=== PATIENT | male | born 1940 | race Caucasian/White ===

== ENCOUNTER 2017-01-01 06:04 | Inpatient (IN) | payer OTHER ==
[2016-12-05 12:27] VITALS: BMI 37.0
--- NOTE | 2016-12-05 12:58 | PAT Medication Instructions ---
Service Date Dec 05, 2016. Current Home Medication List Cholecalciferol (Vitamin D3), 1 TAB PO QAM Diclofenac (Voltaren), 75 MG PO BID Fish Oil ([place]-3), 1 CAP PO QAM Glyburide-Metformin (Glyburide/Metformin Hcl), 2 TAB PO QAM Losartan Potassium (Cozaar), 50 MG PO QAM Misc Natural Products (Osteo Bi-Flex Advanced Do), 1 TAB PO QAM Multivitamin (Multivitamin), 1 TAB PO QAM Terazosin (Hytrin), 5 MG PO HS Medication Instructions For Your Scheduled Surgery - Hold the following medications 10 days prior to surgery: Misc Natural Products (Osteo Bi-Flex Advanced Do), 1 TAB PO QAM Fish Oil ([place]-3), 1 CAP PO QAM - Hold the following medications 48 hours prior to surgery: Glyburide-Metformin (Glyburide/Metformin Hcl), 2 TAB PO QAM - Hold the following medications the morning of surgery: Multivitamin (Multivitamin), 1 TAB PO QAM Losartan Potassium (Cozaar), 50 MG PO QAM Cholecalciferol (Vitamin D3), 1 TAB PO QAM Diclofenac (Voltaren), 75 MG PO BID - Take the following medications as scheduled the night before surgery: Terazosin (Hytrin), 5 MG PO HS If you have any questions please call us at [phone] or [phone] ( [place]) or [phone]
[2016-12-05 13:30] LABS: BASO % 0.3 %; BASO ABS # 0.02 K/uL (0-0.2); COMPLETE YES; HEMATOCRIT 44.9 % (42-52); IG% 0.2 %; LYMPH % 20.8 %; LYMPH ABS # 1.27 K/uL (1.2-3.4); MEAN CELL VOLUME 91.8 fL (80-100); MEAN CORPUSCULAR HEMOGLOBIN 31.3 pg (25-34); MEAN CORPUSCULAR HGB CONC 34.1 g/dl (32-36); MEAN PLATELET VOLUME 10.2 fL (7.4-10.4); NEUT % 68.7 %; PLATELET COUNT 141 K/uL (130-400); RED BLOOD COUNT 4.89 M/uL (4.7-6.1); WHITE BLOOD COUNT 6.11 K/uL (4.8-10.8)
[2016-12-05 13:35] LABS: URINE APPEARANCE CLEAR (CLEAR); URINE BILIRUBIN NEG (NEG); URINE COLOR DK YELLOW; URINE NITRITE NEG (NEG); URINE SPECIFIC GRAVITY 1.034 (1.000-1.030); UROBILINOGEN NEG (NEG); ZZUR CULT IF INDIC CLEAN CATCH NO
[2016-12-05 13:40] LABS: PARTIAL THROMBOPLASTIN RATIO 1.1; PROTHROMBIN TIME (PATIENT) 11.1 SECONDS (9.0-12.0)
--- NOTE | 2016-12-05 13:44 | DIAGNOSTIC IMAGING REPORT ---
TWO VIEW CHEST CLINICAL HISTORY: Preoperative examination. FINDINGS: PA and lateral chest radiographs are obtained. No prior studies are available for comparison at the time of dictation. The examination is degraded by large body habitus. The heart is top normal for projection. The mediastinal contour is within normal limits. The lungs and pleural spaces are clear. There is no pneumothorax. The skeletal structures are osteopenic. Degenerative change and mild scoliosis are noted in the thoracic spine. IMPRESSION: No active disease in the chest. Electronically signed by: Lawrence Paris M.D. 12/05/2016 1:43 PM Dictated Date/Time: 12/05/2016 1:42 PM
[2016-12-05 13:49] LABS: MANUAL MICROSCOPIC REQUIRED? NO; REVIEW REQ? NO
--- NOTE | 2016-12-28 09:05 | HISTORY & PHYSICAL EXAMINATION ---
DATE OF ADMISSION: 01/01/2017 CHIEF COMPLAINT: Left knee pain. HISTORY OF PRESENT ILLNESS: Mr. Cunningham is a 76-year-old male with a 4-5 year history of pain in his left knee. The patient rates his pain a 9/10. He has pain with his daily activities. He has limited standing and walking tolerance. Pain is worse with weightbearing. The patient has been taking pain medication with minimal relief. He has failed conservative treatment. He is scheduled for left knee replacement. PAST MEDICAL HISTORY: Diabetes with an A1c of 5.6, hypertension. He denies heart disease or DVT. PAST SURGICAL HISTORY: Lumbar decompression and cataract extraction. SOCIAL HISTORY: The patient denies alcohol or tobacco use. He lives in a single story home. He is and is semi-retired as a CPA. FAMILY HISTORY: Negative for DVT. MEDICATIONS: Losartan 50 mg, glyburide 1.25/metformin 250 mg, 1 capsule 4 times daily, terazosin 5 mg daily, multivitamin, fish oil, Osteo Bi-Flex, vitamin D3. ALLERGIES: None. REVIEW OF SYSTEMS: See HPI. Ten other systems reviewed, all negative. PHYSICAL EXAMINATION: VITAL SIGNS: Height 5 foot 10. Weight 253 pounds. BMI is 36. GENERAL: This is going to be a well-developed, well-nourished male who is alert and oriented x3. Mood and affect are appropriate. HEAD, EYES, EARS, NOSE, AND THROAT: Normocephalic, atraumatic. Mucous membranes are moist and intact. NECK: Supple without lymphadenopathy. HEART: Regular rate and rhythm without murmurs, rubs or gallops. LUNGS: Clear to auscultation without wheezes or rhonchi. ABDOMEN: Soft and nontender. Bowel sounds are equal and active. EXTREMITIES: No ecchymosis, redness or warmth. Thigh and calf are soft and nontender. He has varus deformity. Range of motion is from 7 to 100 degrees. He has trace medial laxity. He is neurovascularly intact with +5/5 strength. X-RAY EXAMINATION: AP and lateral views show severe joint space narrowing with deformity with joint subluxation and osteophyte formation. IMPRESSION: Degenerative joint disease left knee. PLAN: The patient will be admitted for a left total knee arthroplasty. We will plan on aspirin for DVT prophylaxis. The patient has [facility] set up for home physical therapy. [facility]
[2017-01-01] VITALS (9 sets, daily range): BP systolic 133–153; BP diastolic 70–87; PULSE 61–87; TEMP 36.5–37; O2SAT 94–98; Ht 177.8 cm; Wt 116.2 kg
[~2017-01-01] VITALS: Ht 177.8 cm; Wt 116.2 kg
[~2017-01-01 06:04] MED LIST: ACETAMINOPHEN 500 MG TAB PO SCH; CEFAZOLIN 3000 MG/65 ML D5W 65 ML IV SCH; CHOL1000 PO; CeleBREX 200 MG CAP PO SCH; DICL-201 PO; FAMOTIDINE 20 MG TAB PO SCH; GABAPENTIN 300 MG CAP PO SCH; LACTATED RINGER'S 1000ML 1,000 ML IV SCH; LACTATED RINGER'S 1000ML IV SCH; LOSA50TA6 PO; METOCLOPRAMIDE HCL 10 MG TAB PO SCH; MISCTAB78 PO; MULT-506 PO; OMEG10007 PO; OXYCODONE HCL 10 MG TABCR (OXYCONTIN) PO SCH; POLYMYXIN B SULFATE 100,000 UNITS in NSS 100ML IR SCH; ROPIVACAINE 5MG/ML 30 ML 150 MG, BUPIVACAINE/EPINEPHR 0.5% MPF 30 ML, KETOROLAC TROMETH... INFIL SCH; TERA5CAP PO; VANCOMYCIN INJ 400 MG in NSS 100ML IR SCH; [UNRECOGNIZED DRUG - CODE] PO
[2017-01-01] MEDS ORDERED: BUPIVACAINE 0.25% 30 ML VIAL ONE (06:27)
[2017-01-01] MEDS ORDERED: BUPIVACAINE 0.5 % 5 MG/1 ML PF 10ML VIAL ONE (06:27)
[2017-01-01] MEDS ORDERED: PROPOFOL IV EMULSION 10 MG/ML 20 ML VIAL IV ONE (06:35)
[2017-01-01] MEDS ORDERED: FENTANYL CITRATE INJ 50 MCG/1 ML 2 ML VIAL ONE (06:35)
[2017-01-01] MEDS ORDERED: MIDAZOLAM HCL 1 MG/ML 2ML VIAL ONE ×2 (06:35→09:00)
[2017-01-01] MEDS ORDERED: LIDOCAINE HCL 2% 2 ML VIAL (20MG/ML) ONE (06:35)
--- NOTE | 2017-01-01 06:47 | History & Physical Bridge Note ---
H&P Re-Evaluation Bridge Note: I have examined the patient, reviewed the History & Physical and in the interval since the performance of the History & Physical I have noted the following changes of clinical significance: No changes noted
[2017-01-01] MEDS ORDERED: BUPIVACAINE/EPINEPHRINE 0.25% 1:200,000 30 ML VIAL ONE (07:39)
[2017-01-01] MEDS ORDERED: ORTHO JOINT ANESTHETIC ONE (07:39)
[2017-01-01] MEDS ORDERED: POVIDONE-IODINE OP SOLN 30 ML BTL ONE (07:40)
[2017-01-01] MEDS ORDERED: BACITRACIN 50000 UNIT VIAL ONE (07:40)
[2017-01-01] MEDS: TRANEXAMIC ACID INJ 1,000 MG in SODIUM CHLORIDE 0.9% 100ML 100 ML IV SCH ×2 (07:58→11:20)
[2017-01-01] MEDS ORDERED: LACTATED RINGER'S 1000ML 1,000 ML IV PRN (08:27)
[2017-01-01] MEDS ORDERED: ONDANSETRON INJ 2 MG/ML 2 ML VIAL IV PRN ×2 (08:30→10:00)
[2017-01-01] MEDS ORDERED: FENTANYL CITRATE INJ 50 MCG/1 ML 2 ML VIAL IV PRN (08:30)
[2017-01-01] MEDS ORDERED: EpHEDrine SULFATE 50MG/5ML SYR ONE (08:56)
--- NOTE | 2017-01-01 09:47 | [facility] Post Operative Brief Note ---
Immediate Operative Summary Operative Date Jan 01, 2017. Pre-Operative Diagnosis Left knee degenerative joint disease Post-Operative Diagnosis Left knee degenerative joint disease Procedure(s) Performed left total knee arthroplasty Surgeon Dr. Jersey Gan Process Control Engineer Surgeon(s) Nura Harding PA-C Estimated Blood Loss 75 Findings sevre dz acl def Specimens A: left knee bone and tissue Complication(s) None Disposition Recovery Room / PACU
[2017-01-01] MEDS ORDERED: TRAMADOL HCL 50 MG TAB PO PRN (10:00)
[2017-01-01] MEDS ORDERED: BISACODYL 10 MG SUPP PR PRN (10:00)
[2017-01-01] MEDS ORDERED: OXYCODONE HCL IR 5 MG TAB (IMMEDIATE RELEASE) PO PRN (10:00)
[2017-01-01] MEDS ORDERED: MoRPHine SULFATE 2 MG/ML CARP IV PRN (10:00)
[2017-01-01] MEDS ORDERED: ALUMINUM/MAGNESIUM/SIMETH (MAALOX MAX) 30 ML UDC PO PRN (10:00)
[2017-01-01] MEDS ORDERED: SOD PHOSPHATE/SOD BIPHOSPHATE ENEMA 132 ML BTL PR PRN (10:00)
[2017-01-01] MEDS ORDERED: ZOLPIDEM TARTRATE 5 MG TAB PO PRN (10:00)
[2017-01-01] MEDS ORDERED: MAGNESIUM HYDROXIDE SUSP 30 ML UDC PO PRN (10:00)
[2017-01-01] MEDS ORDERED: METOCLOPRAMIDE HCL INJ 5 MG/ML 2 ML VIAL IV PRN (10:00)
[2017-01-01] MEDS ORDERED: DiphenhydrAMINE HCL 50 MG/ML VIAL IV PRN (10:00)
[2017-01-01] MEDS ORDERED: KETOROLAC TROMETHAMINE 15 MG/ML VIAL IV. PRN (10:00)
--- NOTE | 2017-01-01 11:40 | Anesthesiology Progress Note ---
Anesthesia Post Op Note Date & Time Jan 01, 2017 at 11:38 Vital Signs Pain Intensity: 0 Vital Signs Past 12 Hours Date Time Temp Pulse Resp B/P Pulse Ox O2 Delivery O2 Flow Rate FiO2 01/01/17 11:30 36.8 61 14 114/61 96 Nasal Cannula 2 01/01/17 11:20 63 15 103/63 97 Nasal Cannula 2 01/01/17 11:10 66 17 111/58 95 Nasal Cannula 2 01/01/17 11:00 62 14 103/55 96 Nasal Cannula 2 01/01/17 10:50 58 13 105/57 95 Nasal Cannula 2 01/01/17 10:40 63 13 101/56 96 Nasal Cannula 2 01/01/17 10:30 61 14 100/52 97 Nasal Cannula 2 01/01/17 10:21 36.2 67 16 85/45 94 Nasal Cannula 2 01/01/17 08:00 36.5 80 18 134/74 99 Mask 10 01/01/17 06:10 36.5 87 18 143/79 97 Room Air 01/01/17 06:10 36.5 83 16 143/79 97 Room Air 01/01/17 06:10 36.5 87 18 143/79 97 Room Air Notes Mental Status: alert / awake / arousable, participated in evaluation Pt Amnestic to Procedure: No (recall as expected) Nausea / Vomiting: adequately controlled Pain: adequately controlled Airway Patency, RR, SpO2: stable & adequate BP & HR: stable & adequate Hydration State: stable & adequate Neuraxial Anesthesia: was administered, sensory block is resolving Anesthetic Complications: no major complications apparent Pt doing well.
[2017-01-01] MEDS ORDERED: PHARMACY GLYCEMIC MGMT CONSULT PRN (11:45)
[2017-01-01] MEDS ORDERED: GLUCOSE 10 TABS/TUBE PO PRN (11:45)
[2017-01-01] MEDS ORDERED: GLUCAGON FOR INJ 1 MG VIAL SQ PRN (11:45)
[2017-01-01] MEDS ORDERED: GLUCOSE 40% GEL 15 GM TUBE PO PRN (11:45)
[2017-01-01] MEDS ORDERED: DEXTROSE 50% 50 ML SYR IV PRN (11:45)
--- NOTE | 2017-01-01 11:48 | DIAGNOSTIC IMAGING REPORT ---
LEFT KNEE 2 VIEWS History: Left total knee arthroplasty. Degenerative arthritis. Postop. FINDINGS: The patient is status post a left total knee arthroplasty. The hardware is intact. No fracture or dislocation. Surgical drains are in place. IMPRESSION: Left total knee arthroplasty. No evidence for hardware complication. Electronically signed by: Phillip Ross M.D. 01/01/2017 11:46 AM Dictated Date/Time: 01/01/2017 11:45 AM
[2017-01-01] MEDS: SODIUM CHLORIDE 0.9% 1000ML 1,000 ML IV SCH ×2 (12:15→19:56)
[2017-01-01] MEDS ORDERED: LANTUS PER UNIT CHARGE SQ PRN (12:30)
[2017-01-01] MEDS: INSULIN ASPART 100 UNITS/ML 3 ML PEN SC SCH ×3 (12:30→21:17)
--- NOTE | 2017-01-01 12:58 | Medical Consult ---
Consultation Date of Consultation: Jan 01, 2017. Attending Physician: Jose Gan M.D. Reason for Consultation: Medical management History of Present Illness 76 yo male with advanced arthritis, presented today for elective left TKA. Procedure went well, no complications, minimal blood loss at 75cc. Now resting in his room, starting to regain sensation in left leg and can wiggle his toes. Denies chest pain, dyspnea, nausea post operatively. No pain in the left knee. Vitals stable. Medical history significant for DM type II that is very well controlled with a HbA1c of 5.6 and HTN that is also well controlled. He confirms that he does not have any history of SC or stroke or VTE or cancer. Past Medical/Surgical History HTN Hyperlipidemia DM type II Lumbar surgery Cataract surgery Family History reviewed, no history of VTE or SC in family + for DM type II Social History Smoking Status: Never Smoker Alcohol Use: none Marital Status: Housing Status: lives with family Occupation Status: retired (CPA) Allergies Coded Allergies: No Known Allergies (Unverified , 01/01/17) Home Medications Vitamin D 1000 units daily Losartan 50mg daily Hytrin 5mg daily Glyburide/Metformin 2 tablets qAM Fish oil Multivitamin Voltaren 75mg BID Current Inpatient Medications Current Inpatient Medications Medications (Trade) Dose Ordered Sig/Gene Route Start Time Stop Time Status Last Admin Dose Admin Cefazolin Sodium (Ancef 3000 Mg/ 65 ml D5W) 65 ml @ 100 mls/hr PREOP IV 01/01/17 06:00 01/01/17 18:00 Acetaminophen (Tylenol Tab) 1,000 mg PREOP PO 01/01/17 06:00 01/01/17 18:00 01/01/17 06:48 1,000 MG Celecoxib (CeleBREX CAP) 200 mg PREOP PO 01/01/17 06:00 01/01/17 18:00 01/01/17 06:48 200 MG Famotidine (Pepcid Tab) 20 mg PREOP PO 01/01/17 06:00 01/01/17 18:00 01/01/17 06:48 20 MG Gabapentin (Neurontin Cap) 900 mg PREOP PO 01/01/17 06:00 01/01/17 18:00 01/01/17 06:47 900 MG Metoclopramide HCl (Reglan Tab) 10 mg PREOP PO 01/01/17 06:00 01/01/17 18:00 01/01/17 06:47 10 MG Oxycodone HCl 10 mg 10 mg PREOP PO 01/01/17 06:00 01/01/17 18:00 01/01/17 06:49 10 MG Tranexamic Acid 1000 mg/Sodium Chloride 110 ml @ 660 mls/hr TODAY@06,0630 IV 01/01/17 06:00 01/01/17 18:00 01/01/17 07:58 660 MLS/HR Polymyxin B Sulfate 715991 units/Sodium Chloride 102 ml @ 0 mls/hr 0600 IR 01/01/17 06:00 01/01/17 18:00 01/01/17 09:20 102 MLS/HR Vancomycin HCl/ Sodium Chloride (Vancomycin Inj/ Nss 100ml) 108 ml @ 0 mls/hr 0600 IR 01/01/17 06:00 01/01/17 18:00 01/01/17 09:20 108 MLS/HR Fentanyl Citrate (Fentanyl Inj) 25 mcg Q5M PRN IV 01/01/17 08:30 01/01/17 13:30 Ondansetron HCl 4 mg 4 mg ONE PRN IV 01/01/17 08:30 01/01/17 13:30 Lactated Ringer's 1,000 ml @ 150 mls/hr Q6H40M PRN IV 01/01/17 08:27 01/01/17 13:30 Sodium Chloride 1,000 ml @ 100 mls/hr Q10H IV 01/01/17 09:47 01/02/17 09:46 01/01/17 12:15 100 MLS/HR Cefazolin Sodium/ Dextrose (Ancef Iv/D5 50ml) 60 ml @ 100 mls/hr Q8H IV 01/01/17 16:00 01/02/17 00:35 Celecoxib (CeleBREX CAP) 200 mg QD@08 PO 01/04/17 08:00 02/03/17 07:59 Oxycodone HCl (Roxicodone Immediate Rel Tab) 1 TABLET FOR PAIN RATING... Q4H PRN PO 01/01/17 10:00 01/15/17 09:59 Oxycodone HCl (Oxycontin Tab) 10 mg Q12 PO 01/01/17 21:00 01/15/17 20:59 Morphine Sulfate (MoRPHine SULFATE INJ) 2 mg Q2HWA PRN IV 01/01/17 10:00 01/15/17 09:59 Acetaminophen (Tylenol Tab) 1,000 mg Q8H PO 01/01/17 14:00 01/31/17 09:59 Magnesium Hydroxide (Milk Of Magnesia Susp) 30 ml Q6H PRN PO 01/01/17 10:00 01/31/17 09:59 Bisacodyl (Dulcolax Supp) 10 mg DAILY PRN GA 01/01/17 10:00 01/31/17 09:59 Sodium Biphosphate/ Sodium Phosphate (Fleet Enema) 132 ml DAILY PRN GA 01/01/17 10:00 01/31/17 09:59 Senna (Senokot Tab) 17.2 mg HS PO 01/01/17 21:00 01/31/17 20:59 Diphenhydramine HCl (Benadryl Cap) 25 mg Q8H PRN PO 01/01/17 10:00 01/31/17 09:59 Diphenhydramine HCl (Benadryl Inj) 25 mg Q8H PRN IV 01/01/17 10:00 01/31/17 09:59 Al Hydrox/Mg Hydrox/Simethicone (Maalox Max Susp) 15 ml Q4H PRN PO 01/01/17 10:00 01/31/17 09:59 Zolpidem Tartrate (Ambien Tab) 5 mg HSZ PRN PO 01/01/17 10:00 01/31/17 09:59 Multivitamins (Multivitamin Tab) 1 tab QAM PO 01/02/17 09:00 02/01/17 08:59 Ondansetron HCl (Zofran Inj) 4 mg Q6H PRN IV 01/01/17 10:00 01/31/17 09:59 Metoclopramide HCl (Reglan Inj) 10 mg Q6H PRN IV 01/01/17 10:00 01/31/17 09:59 Pantoprazole Sodium (Protonix Tab) 40 mg QAM PO 01/02/17 09:00 02/01/17 08:59 Tramadol HCl 1 tablet for pain rating... Q4H PRN PO 01/01/17 10:00 01/31/17 09:59 Tranexamic Acid/ Sodium Chloride (Cyklokapron Inj/ Nss 100ml) 110 ml @ 660 mls/hr Q6H IV 01/01/17 16:00 01/01/17 16:09 Ketorolac Tromethamine (Toradol Inj) 15 mg Q6H PRN IV. 01/01/17 10:00 01/03/17 09:59 Aspirin (Ecotrin Tab) 81 mg BID PO 01/01/17 21:00 01/31/17 20:59 Cholecalciferol (Vitamin D Tab) 1,000 inter.unit QAM PO 01/02/17 09:00 02/01/17 08:59 Losartan Potassium (coZAAR TAB) 50 mg QAM PO 01/02/17 09:00 02/01/17 08:59 Terazosin HCl (Hytrin Cap) 5 mg HS PO 01/01/17 21:00 01/31/17 20:59 Miscellaneous Information (Consult Glycemic Management Pharmacy) 1 ea UD PRN N/A 01/01/17 11:45 01/31/17 11:44 Glucose (Glucose 40% Gel) 15-30 GRAMS 15 GRAMS... UD PRN PO 01/01/17 11:45 01/31/17 11:44 Glucose (Glucose Chew Tab) 4-8 Tablets 4 Tabl... UD PRN PO 01/01/17 11:45 01/31/17 11:44 Dextrose (Dextrose 50% 50ML Syringe) 25-50ML OF 50% DW IV FOR... UD PRN IV 01/01/17 11:45 01/31/17 11:44 Glucagon (Glucagon Inj) 1 mg UD PRN SQ 01/01/17 11:45 01/31/17 11:44 Insulin Aspart (novoLOG ASPART) SLIDING SCALE ACHS SC 01/01/17 12:30 01/31/17 12:29 Miscellaneous Information (Pending Order) 1 ea HS N/A 01/01/17 21:00 01/01/17 21:01 Insulin Glargine (Lantus Per Unit) 10 units HS PRN SQ 01/01/17 12:30 01/01/17 23:59 Review of Systems Constitutional: No chills, No fatigue, No fever, No problem reported, No sweats , No weakness, No weight loss Eyes: No diplopia, No discharge, No eye pain, No problem reported, No redness, No worsening of vision ENT: No dental problems, No hearing loss, No nasal symptoms, No problem reported, No sore throat, No tinnitus, No trouble swallowing, No unusual epistaxis Respiratory: No cough, No dyspnea at rest, No dyspnea on exertion, No hemoptysis, No problem reported, No shortness of breath, No sputum, No wheezing Cardiovascular: No PND, No chest pain, No claudication, No edema, No orthopnea , No palpitations, No problem reported Abdomen: No GI bleeding, No constipation, No diarrhea, No nausea, No pain, No problem reported, No vomiting Musculoskeletal: + joint pain (left knee prior to surgery, currently numb from nerve block), No calf pain, No muscle pain, No problem reported, No swelling Genitourinary - Male: No dysuria, No hematuria, No urinary frequency, No urinary urgency Neurologic: No balance problems, No memory loss, No numbness/tingling, No paralysis, No problem reported, No vertigo, No weakness Psychiatric: No anhedonism, No anxiety, No depression symptoms, No insomnia, No problem reported, No substance abuse Endocrine: No excessive thirst, No excessive urination, No fatigue, No problem reported Hematologic / Lymphatic: No abnormal bleeding/bruising, No clotting problems, No night sweats, No problem reported, No swollen lymph nodes Integumentary: No bleeding, No color change, No itch, No new/changing skin lesions, No problem reported, No rash Physical Exam Date Time Temp Pulse Resp B/P Pulse Ox O2 Delivery O2 Flow Rate FiO2 01/01/17 12:45 97 Nasal Cannula 2.0 01/01/17 12:39 Nasal Cannula 2.0 01/01/17 12:37 36.6 63 12 135/74 97 Nasal Cannula 2.0 01/01/17 12:36 Nasal Cannula 2.0 01/01/17 12:32 36.5 61 15 133/74 98 Nasal Cannula 2.0 01/01/17 11:45 58 14 116/62 97 Nasal Cannula 2 01/01/17 11:30 36.8 61 14 114/61 96 Nasal Cannula 2 01/01/17 11:20 63 15 103/63 97 Nasal Cannula 2 01/01/17 11:10 66 17 111/58 95 Nasal Cannula 2 01/01/17 11:00 62 14 103/55 96 Nasal Cannula 2 01/01/17 10:50 58 13 105/57 95 Nasal Cannula 2 01/01/17 10:40 63 13 101/56 96 Nasal Cannula 2 01/01/17 10:30 61 14 100/52 97 Nasal Cannula 2 01/01/17 10:21 36.2 67 16 85/45 94 Nasal Cannula 2 01/01/17 08:00 36.5 80 18 134/74 99 Mask 10 01/01/17 06:10 36.5 87 18 143/79 97 Room Air 01/01/17 06:10 36.5 83 16 143/79 97 Room Air 01/01/17 06:10 36.5 87 18 143/79 97 Room Air General Appearance: WD/WN, no apparent distress Head: normocephalic, atraumatic Eyes: normal inspection, PERRL, EOMI, sclerae normal ENT: normal ENT inspection, hearing grossly normal, pharynx normal Neck: supple, no adenopathy, no JVD, trachea midline Respiratory/Chest: chest non-tender, lungs clear, normal breath sounds, no respiratory distress, no accessory muscle use Cardiovascular: regular rate, rhythm, no edema, no gallop, no JVD, no murmur, normal peripheral pulses Abdomen/GI: normal bowel sounds, non tender, soft, no organomegaly Back: normal inspection, no CVA tenderness, no muscle spasm, normal range of motion Extremities/Musculoskelatal: normal capillary refill, no pedal edema, non- tender, pelvis stable, + pertinent finding (left knee immobilized) Neurologic/Psych: bike designer II-XII nml as tested, alert, normal mood/affect, normal reflexes, oriented x 3, + sensory deficit (left leg from nerve block) Skin: normal color, warm/dry, no rash Lymphatic: no adenopathy Laboratory Results Last 24 Hours Test 01/01/17 06:21 01/01/17 10:40 01/01/17 12:07 Bedside Glucose 151 mg/dl 137 mg/dl 149 mg/dl Assessment & Plan 76 yo male s/p left TKA, h/o DM and HTN - left TKA, POD #0 pain control, DVT prophylaxis, activity level and d/c planning per orthopedics - HTN: continue Losartan and Hytrin with hold parameters check BMP in the AM - DM type II: hold oral agents while hospitalized, Novolog SS resume Glyburide/Metformin on discharge - DVT prophylaxis: Aspirin Additional Copies To Ho Self M.D.
[2017-01-01] MEDS: ACETAMINOPHEN 500 MG TAB PO SCH ×2 (13:53→22:23)
--- NOTE | 2017-01-01 14:02 | Pharmacy Progress Note ---
Glycemic Control Intl Consult Date of Service Jan 01, 2017. Scope Glycemic Pharmacist consulted by Dr Gan on 01/01/2017 for glycemic control and to write orders per [facility] inpatient glycemic control protocol Objective Weight (Kilograms): 116.20 Accuchecks BSG (last 24hrs): Test 01/01/17 06:21 01/01/17 10:40 01/01/17 12:07 Bedside Glucose 151 mg/dl (70-99) 137 mg/dl (70-99) 149 mg/dl (70-99) Recent Pertinent Medications Outpatient Anti-diabetic Regimen: * Glyburide-Metformin 1.25 mg/250 mg 2 tablets qAM (last dose 12/31/2016) Risk Factors for Insulin Resistance: * Recent Surgery: L TKA on 01/01/2017 (POD 0) * Diet: type 2 diabetic diet Assessment & Plan ASSESSMENT: * ADA & AACE recommend a goal blood sugar range 140-180 mg/dl for the majority of critically ill & non-critically ill patients. However, more stringent targets may be selected in individual cases. A tighter blood sugar range is utilized for this patient based upon his age, co-morbidities, and HbA1C control as an outpatient. 01/01/2017 * Mr Cunningham is a type 2 diabetic patient admitted for a L TKA on 01/01/2017. He did not receive IV steroids intra-operatively. He has unknown control of his diabetes (H&P indicates well-controlled with A1C < 6.0%) with oral medications alone. * His fasting blood sugar pre-operatively was 151 mg/dL and after surgery was 149 mg/dL. This indicates the patient is most likely insulin sensitive so a looser carbohydrate ratio and correction factor will be utilized. A weight- based stress of 2 calculation recommends Lantus 20 units BID and then a correction factor of 20 mg/dL and carbohydrate ratio of 1:7. * A one time dose of Lantus was added at bedtime for severe hyperglycemia as it is unknown how the patient will respond to surgery. Excellent glycemic control is important post-operatively. * The patient's oral medications have been placed on hold. Once the patient's kidney function has been assessed and oral intake established will restart the patient's oral outpatient medications. Hopefully will restart 1-2 days prior to discharge. PLAN FOR INPATIENT GLYCEMIC CONTROL: * Holding outpatient oral diabetes medications * Lantus 10 units x 1 at bedtime if blood sugar greater than or equal to 200 mg/ dL * Correctional Insulin with NOVOLOG per scale ACHS * Goal Range: Low 110 mg/dL - High 140 mg/dL * Correction Factor: 30 mg/dL/unit * Nutritional / Prandial insulin per carb ratio of 1 unit per 10 grams CHO consumed * Please note that the plan above was derived based on current level of insulin resistance and hospital stress. These recommendations are appropriate for inpatient admission only. Plan of care upon discharge will need to be reassessed to avoid potential outpatient hypo/hyperglycemia. Thank you.
--- NOTE | 2017-01-01 15:27 | OPERATIVE REPORT ---
DATE OF OPERATION: 01/01/2017 PREOPERATIVE DIAGNOSIS: Degenerative arthritis, left knee. POSTOPERATIVE DIAGNOSIS: Same. PROCEDURE: Left total knee patient matched implant. SURGEON: Dr. Gan. GAS AND OIL CHECKER: ADOLPH Beltran. ANESTHESIA: Spinal. BLOOD LOSS: 75 mL REPLACEMENT FLUIDS: 1800 mL of crystalloid. DRAINS: Hemovac x2. CULTURES: None. COMPLICATIONS: None. COMPONENTS USED: [employer] [place] Knee System: Femur size 8, tibia size 7 x 10, patella size 38. NOTE: ADOLPH Beltran was present and assisted throughout due to the complicated nature of this case. He helped with preparation and set up, he first assisted throughout and personally closed the capsule, subcutaneous and skin layers and applied the postoperative dressing. DESCRIPTION: Following satisfactory spinal, the patient was supine. A tourniquet was placed but not inflated. The lower extremity was prepared with ChloraPrep and draped sterilely. Following a surgical time-out, a midline incision was made with a median parapatellar arthrotomy. The knee showed severe grade 4 changes throughout with absence of the anterior cruciate. The patient matched femoral block was applied. Femoral distal rotation and resection were set and completed. The 4-in-1 block was used to complete preparation of the femur. The patient matched tibial block was applied. Tibial resection was completed. The patella was freehand cut. Soft tissue balancing was completed and a trial reduction showed good tensioning and stability on the collateral ligaments, stable range of motion, and the patella tracked well. The trial components were removed, the capsule was prepared with the orthopedic cocktail and after irrigation, the components were cemented with Simplex G cement. A Betadine soak was performed. When the cement had hardened, the Betadine was irrigated. Two drains were placed. The arthrotomy was closed with a running suture of 0 V-Loc and reinforced with #1 Vicryl. The subcutaneous tissues were closed with 2-0 Vicryl and the skin with a running subcuticular stitch of 3-0 V-Loc. Dermabond and a dry dressing were applied. The patient was returned to his bed in stable condition. I attest to the content of the Intraoperative Record and any orders documented therein. Any exceptio ns are noted below.
[2017-01-01] MEDS ORDERED: TRANEXAMIC ACID INJ 1,000 MG in SODIUM CHLORIDE 0.9% 100ML 100 ML IV SCH (16:00)
[2017-01-01] MEDS: CEFAZOLIN IV 2,000 MG in DEXTROSE 5% 50ML 50 ML IV SCH ×2 (16:25→23:46)
[2017-01-01] MEDS ORDERED: SENNA 8.6 MG TAB PO SCH (21:00)
[2017-01-01] MEDS: OXYCODONE HCL 10 MG TABCR (OXYCONTIN) PO SCH (21:10)
[2017-01-01] MEDS: ASPIRIN 81 MG ECTAB PO SCH (21:11)
[2017-01-02 03:15] VITALS: BP 149/78; PULSE 72; TEMP 36.7; O2SAT 96
[2017-01-02] MEDS: ACETAMINOPHEN 500 MG TAB PO SCH (05:35)
[2017-01-02] MEDS: SODIUM CHLORIDE 0.9% 1000ML 1,000 ML IV SCH (05:37)
[2017-01-02 06:03] LABS: HEMATOCRIT 37.5 % (42-52); MEAN CORPUSCULAR HEMOGLOBIN 30.6 pg (25-34); MEAN CORPUSCULAR HGB CONC 33.6 g/dl (32-36); MEAN PLATELET VOLUME 10.1 fL (7.4-10.4); PLATELET COUNT 123 K/uL (130-400); RED BLOOD COUNT 4.12 M/uL (4.7-6.1); WHITE BLOOD COUNT 11.88 K/uL (4.8-10.8)
[2017-01-02 06:28] LABS: BUN/CREATININE RATIO 21.2 (10-20); CALCIUM 7.9 mg/dl (8.5-10.1); CREATININE 0.84 mg/dl (0.60-1.40); POTASSIUM 3.8 mmol/L (3.5-5.1)
[2017-01-02 06:47] VITALS: BP 154/79; PULSE 76; TEMP 37; O2SAT 94
--- NOTE | 2017-01-02 06:51 | Discharge Instructions ---
Discharge Instructions Date of Service Jan 02, 2017. Admission Reason for Admission: Left Knee Degenerative Arthritis Discharge Discharge Diagnosis / Problem: Left Knee Djd Discharge Goals Goal(s): Decrease discomfort, Improve function Activity Recommendations Activity Limitations: per Instructions/Follow-up section Weightbearing Status: Left weightbearing (as tolerated) . Instructions / Follow-Up Instructions / Follow-Up ACTIVITY RECOMMENDATIONS: SELF CARE INSTRUCTIONS AFTER TOTAL KNEE REPLACEMENT A. You may need to continue a physical therapy program after discharge from the hospital. There are several options available to you. Your doctor will assist you in selecting the best one for you. 1. An out-patient facility 2 to 3 times a week for therapy or home therapy. 2. Continue working on all exercises taught to you in the hospital. Your goals should be to increase bending of your knee to 90 degrees and beyond and to fully straighten your knee. B. You may progress at your own pace from walking with a walker or crutches to a cane; then to no assistive devices. C. Make walking a part of your daily routine. Be up as much as comfortable with rest periods throughout the day. Rest with leg elevation is very important. Use the ice wrap frequently for the first 3-4 weeks. D. There are no restrictions on activities. You may ride in a car, shop, participate in bolt labeler and all social activities. E. Wear the long elastic stockings (GABRIEL hose) 20 hours a day for 2 weeks after surgery. They can be removed several times a day for laundering and for a bath. F. You may shower, no tub baths until cleared by your doctor. SPECIAL CARE INSTRUCTIONS: VERY IMPORTANT TO READ AND REVIEW A. There are a few signs you need to watch for after you are home. Call [facility] if you notice any of the followin. Increased severe knee pain. Some pain is expected especially when you exercise. 2. Increased swelling in your leg or knee; pain or swelling of the calf muscle in either lower leg. 3. Any fluid drainage from the incision. 4. Shortness of breath or chest pain. B. Please call [facility] at if you have any concerns or questions about your operation or recovery. The doctor or his nurse will return your call promptly. C. You must take antibiotics before dental work, bladder, bowel or other surgery. Your doctor will provide you with a permanent care to carry describing this precaution. IMPORTANT: * REMEMBER TO TAKE ASPIRIN, 81 MG, TWICE DAILY FOR 4 WEEKS UNLESS OTHERWISE DIRECTED. THIS IS YOUR BLOOD THINNER. * HIGH RISK PATIENTS MAY BE PRESCRIBED A STRONGER BLOOD THINNER. THIS WILL BE PROVIDED AT DISCHARGE. * CALL IF INCREASED PAIN, REDNESS, DRAINAGE OR FEVER GREATER THAT 101. * WEAR GABRIEL HOSE 20 HOURS PER DAY FOR 2 WEEKS. * DERMABOND Prineo- This is a mesh tape dressing that is covered with glue. It should remain in place until the incision is properly healed, usually 10-14 days. This dressing is designed to naturally slough off. You may trim the excess mesh tape as it peels off. Incision may be briefly wet in a shower. Dry immediately by blotting with a clean, dry towel. Do not bath or swim until instructed by your doctor. Do not scratch, rub, or pick at the dressing. Do not apply any topical ointments or lotions until dressing is completely removed and/or instructed by your doctor. There may be a small piece of suture material at one end of your incision. Do not pull or trim this. If it is bothersome or catching on clothing, you may cover it with a band-aid. . FOLLOW UP VISIT: If appointment is not already scheduled: Please call [facility] to make a follow-up appointment for 2 weeks after your surgery at . Current Hospital Diet Patient's current hospital diet: Diabetes Type 2 Diet Discharge Diet Recommended Diet: Diabetes Type 2 Diet Procedures Procedures Performed: left total knee arthroplasty Pending Studies Studies pending at discharge: no Laboratory Results Hemoglobin A1c Test 01/02/17 05:22 Range/Units Medical Emergencies . Who to Call and When: Medical Emergencies: If at any time you feel your situation is an emergency, please call 911 immediately. . Non-Emergent Contact Non-Emergency issues call your: Surgeon Call Non-Emergent contact if: temperature is above 101.5, your pain is not controlled, your pain is worsening, wound has increased drainage, wound has increased redness . "Provider Documentation" section prepared by Nura Harding. VTE Core Measure Inpt VTE Proph given/why not?: Other Anticoagulation, T.E.D. Stockings, SCD's [place] Drug Monitoring Program Search Results: patient reviewed within database, no issues identified
--- NOTE | 2017-01-02 07:58 | Anesthesiology Progress Note ---
Anesthesia Post Op Note Date & Time Jan 02, 2017 at 07:57 Vital Signs Pain Intensity: 0.0 Vital Signs Past 12 Hours Date Time Temp Pulse Resp B/P Pulse Ox O2 Delivery O2 Flow Rate FiO2 01/02/17 07:38 Room Air 01/02/17 06:47 37.0 76 19 154/79 94 Room Air 01/02/17 03:15 36.7 72 18 149/78 96 Room Air 01/01/17 23:50 Room Air 01/01/17 22:52 36.9 84 18 148/70 96 Room Air Notes Mental Status: alert / awake / arousable, participated in evaluation Pt Amnestic to Procedure: Yes Nausea / Vomiting: adequately controlled Pain: adequately controlled Airway Patency, RR, SpO2: stable & adequate BP & HR: stable & adequate Hydration State: stable & adequate Neuraxial Anesthesia: sensory block resolved Anesthetic Complications: no major complications apparent
--- NOTE | 2017-01-02 08:05 | Orthopedic Progress Note ---
Orthopedic Progress Note Date of Service Jan 02, 2017. Subjective Post OP Day: 1 Reports: feeling well, Denies: SOB, calf pain, chest pain, light headedness, nausea / vomiting Objective calves soft nontender, N/V intact, dressing C/D/I, A&O x3, toes mobile, hemovac drainage (580/200 CC PER SHIFT) Date Time Temp Pulse Resp B/P Pulse Ox O2 Delivery O2 Flow Rate FiO2 01/02/17 07:38 Room Air 01/02/17 06:47 37.0 76 19 154/79 94 Room Air 01/02/17 03:15 36.7 72 18 149/78 96 Room Air 01/01/17 23:50 Room Air 01/01/17 22:52 36.9 84 18 148/70 96 Room Air 01/01/17 19:09 37.0 77 18 149/77 94 Room Air 01/01/17 15:12 36.6 64 18 146/87 98 Nasal Cannula 2.0 01/01/17 15:10 Nasal Cannula 2.0 01/01/17 14:09 36.6 61 17 153/83 97 Nasal Cannula 2.0 01/01/17 13:06 36.9 67 19 135/72 95 Nasal Cannula 2.0 01/01/17 12:45 97 Nasal Cannula 2.0 01/01/17 12:39 Nasal Cannula 2.0 01/01/17 12:37 36.6 63 12 135/74 97 Nasal Cannula 2.0 01/01/17 12:36 Nasal Cannula 2.0 01/01/17 12:32 36.5 61 15 133/74 98 Nasal Cannula 2.0 01/01/17 11:45 58 14 116/62 97 Nasal Cannula 2 01/01/17 11:30 36.8 61 14 114/61 96 Nasal Cannula 2 01/01/17 11:20 63 15 103/63 97 Nasal Cannula 2 01/01/17 11:10 66 17 111/58 95 Nasal Cannula 2 01/01/17 11:00 62 14 103/55 96 Nasal Cannula 2 01/01/17 10:50 58 13 105/57 95 Nasal Cannula 2 01/01/17 10:40 63 13 101/56 96 Nasal Cannula 2 01/01/17 10:30 61 14 100/52 97 Nasal Cannula 2 4/17/17 10:21 36.2 67 16 85/45 94 Nasal Cannula 2 Laboratory Results 24 Hours: Test 01/02/17 05:22 Hematocrit 37.5 % Hemoglobin 12.6 g/dL Assessment & Plan Assessment: POD#1 SP LEFT TKA Inhouse Planning Pain Management: Celebrex, Oxycontin, PO Tylenol, Oxy IR DVT Prophylaxis: TEDs, SCDs, ASA Discharge Planning Discharge Planning: home with home health ([facility])
[2017-01-02] MEDS ORDERED: ASPEC81 PO (08:07)
[2017-01-02] MEDS ORDERED: CLB200 PO (08:07)
[2017-01-02] MEDS ORDERED: ACET-1138 PO (08:07)
[2017-01-02] MEDS ORDERED: ONDA8TAB6 PO (08:07)
[2017-01-02] MEDS ORDERED: SNK PO (08:07)
[2017-01-02] MEDS ORDERED: RXC5 PO (08:07)
[2017-01-02 08:19] LABS: ESTIMATED AVERAGE GLUCOSE 126 mg/dl; HA1C FLAG Normal (Normal)
[2017-01-02] MEDS: ASPIRIN 81 MG ECTAB PO SCH (08:25)
[2017-01-02] MEDS: OXYCODONE HCL 10 MG TABCR (OXYCONTIN) PO SCH (08:26)
[2017-01-02] MEDS: INSULIN ASPART 100 UNITS/ML 3 ML PEN SC SCH (08:29)
[2017-01-02] MEDS ORDERED: CHOLECALCIFEROL 1000 INTER.UNIT TAB PO SCH (09:00)
[2017-01-02] MEDS ORDERED: MULTIVITAMIN TAB PO SCH (09:00)
[2017-01-02] MEDS ORDERED: PANTOprazole SOD 40 MG TAB PO SCH (09:00)
[2017-01-02] MEDS ORDERED: LOSARTAN POTASSIUM 50 MG TAB PO SCH (09:00)
[2017-01-02 09:26] VITALS: BP 154/79; PULSE 76; TEMP 37; O2SAT 94
[2017-01-04] MEDS ORDERED: CeleBREX 200 MG CAP PO SCH (08:00)
--- NOTE | 2017-01-09 11:55 | DISCHARGE SUMMARY ---
DISCHARGE DIAGNOSIS: Degenerative joint disease left knee. SECONDARY DIAGNOSES: Diabetes mellitus, hypertension. CONSULTS: None. COMPLICATIONS: None. PROCEDURES: Left total knee arthroplasty performed by Dr. Jersey Gan on 01/01/2017. BRIEF HISTORY: As dictated in history and physical. HOSPITAL SUMMARY: The patient was admitted on the above date and had the above known surgery performed which he tolerated well. On the first postoperative day, patient was feeling well and had no complaints. Calves were soft and nontender, neurovascularly intact. Dressings clean, dry and intact. Toes were mobile. Hemoglobin was 12.6 and vital signs were stable. He was afebrile. He was started on physical therapy protocol and continued on DVT prophylaxis and pain management. He was remaining stable throughout his stay and it was felt he could be discharged to home on 01/02/2017. For further review, please see chart. LAB AND X-RAY DATA: As per chart. DISCHARGE INSTRUCTIONS: The patient was discharged to home in satisfactory condition on 01/02/2017. DIET: Diabetic. ACTIVITY: Weightbearing as tolerated left lower extremity. Follow TK instruction sheets and special care instructions as noted. Follow up with Dr. Jersey Gan in 2 weeks. The patient to call for appointment if one has not been made for you. DISCHARGE MEDICATIONS: Acetaminophen 1000 mg p.o. q. 8 hours, aspirin 81 mg p.o. b.i.d. for 30 days, Celebrex 200 mg p.o. daily, Zofran 8 mg p.o. q. 8 hours p.r.n., oxycodone 5-10 mg p.o. q. 4 hours p.r.n., senna 17.2 mg p.o. bedtime, resume taking vitamin D 3000 units p.o. q.a.m., fish oil caplet 1 p.o. q.a.m., glyburide/metformin 2 tabs p.o. q.a.m., losartan potassium 50 mg p.o. q.a.m., Osteo Bi-Flex 1 tab p.o. q.a.m., multivitamin 1 tab p.o. q.a.m., terazosin 5 mg p.o. at bedtime. Stop taking diclofenac.
[2017-05-24] MEDS ORDERED: DICL-201 PO (09:04)
[2017-05-24] MEDS ORDERED: ACET-1256 PO (09:04)
[2017-05-24] MEDS ORDERED: FLUT0.15 (09:04)
== END 2017-01-02 10:20 | disposition home health service (06) | DRG 470 ==
LOC: ENRESERVDT → ENRESERVTM → C.ACU 06:04 → C.3E 06:30
PROVIDERS: ADMIT Orthopaedic Surgery; ATTEND Orthopaedic Surgery
PROC: 0SRD0J9 Replacement of Left Knee Joint with Synthetic Substitute, Cemented, Open Approach (ICD-10-PCS; principal; 2017-01-01 08:15)
DX: M17.12 Unilateral primary osteoarthritis, left knee (principal); M21.162 Varus deformity, not elsewhere classified, left knee; E11.9 Type 2 diabetes mellitus without complications; I10 Essential (primary) hypertension; N40.0 Benign prostatic hyperplasia without lower urinary tract symptoms; E66.9 Obesity, unspecified; Z68.36 Body mass index [BMI] 36.0-36.9, adult; Z79.1 Long term (current) use of non-steroidal anti-inflammatories (NSAID); Z79.84 Long term (current) use of oral hypoglycemic drugs; Z79.899 Other long term (current) drug therapy

== ENCOUNTER 2017-07-04 09:23 | Inpatient (IN) | payer OTHER ==
[2017-05-24 08:39] VITALS: BMI 36.0
--- NOTE | 2017-05-24 09:17 | PAT Medication Instructions ---
Service Date May 24, 2017. Current Home Medication List Acetaminophen (Tylenol), 2 TAB PO Q6 PRN for Pain Cholecalciferol (Vitamin D3), 1 TAB PO QAM Diclofenac (Voltaren), 75 MG PO BID Fish Oil (Gaffney-3), 1 CAP PO QAM Fluticasone Propionate (Nasal) (Flonase Allergy Relief), 2 SPRAY NA DAILY PRN for congestion Glyburide-Metformin (Glyburide/Metformin Hcl), 2 TAB PO QAM Losartan Potassium (Cozaar), 50 MG PO QAM Misc Natural Products (Osteo Bi-Flex Advanced Do), 1 TAB PO QAM Multivitamin (Multivitamin), 1 TAB PO QAM Senna (Senna Lax), 17.2 MG PO HS Terazosin (Hytrin), 5 MG PO HS Medication Instructions For Your Scheduled Surgery - Hold the following medications 2 weeks prior to surgery: Fish Oil (Gaffney-3), 1 CAP PO QAM Misc Natural Products (Osteo Bi-Flex Advanced Do), 1 TAB PO QAM - Hold the following medications 48 hours prior to surgery: Glyburide-Metformin (Glyburide/Metformin Hcl), 2 TAB PO QAM - Hold the following medications the morning of surgery: Cholecalciferol (Vitamin D3), 1 TAB PO QAM Losartan Potassium (Cozaar), 50 MG PO QAM Multivitamin (Multivitamin), 1 TAB PO QAM Diclofenac (Voltaren), 75 MG PO BID (otherwise okay to continue per surgeon) - Take the following medications the morning of surgery with a sip of water OTHERWISE NOTHING TO EAT OR DRINK AFTER MIDNIGHT: Acetaminophen (Tylenol), 2 TAB PO Q6 PRN for Pain (may take if needed up to 4 hours prior to surgery) Fluticasone Propionate (Nasal) (Flonase Allergy Relief), 2 SPRAY NA DAILY PRN for congestion - Take the following medications as scheduled the night before surgery: Acetaminophen (Tylenol), 2 TAB PO Q6 PRN for Pain Senna (Senna Lax), 17.2 MG PO HS Terazosin (Hytrin), 5 MG PO HS If you have any questions please call us at [phone] or [phone] or [phone]
[2017-05-24 09:58] LABS: BASO % 0.3 %; BASO ABS # 0.02 K/uL (0-0.2); COMPLETE YES; EOS % 0.2 %; HEMATOCRIT 49.5 % (42-52); IG% 0.2 %; LYMPH % 19.1 %; LYMPH ABS # 1.15 K/uL (1.2-3.4); MEAN CELL VOLUME 91.5 fL (80-100); MEAN CORPUSCULAR HGB CONC 31.7 g/dl (32-36); MEAN PLATELET VOLUME 9.9 fL (7.4-10.4); MONO % 12.1 %; NEUT % 68.1 %; PLATELET COUNT 133 K/uL (130-400); RED BLOOD COUNT 5.41 M/uL (4.7-6.1); WHITE BLOOD COUNT 6.01 K/uL (4.8-10.8)
[2017-05-24 10:02] LABS: URINE APPEARANCE CLEAR (CLEAR); URINE BILIRUBIN NEG (NEG); URINE COLOR DK YELLOW; URINE NITRITE NEG (NEG); URINE SPECIFIC GRAVITY 1.031 (1.000-1.030); UROBILINOGEN NEG (NEG); ZZUR CULT IF INDIC CLEAN CATCH NO
[2017-05-24 10:07] LABS: MANUAL MICROSCOPIC REQUIRED? NO; PROTHROMBIN TIME (PATIENT) 10.9 SECONDS (9.0-12.0); REVIEW REQ? NO
[2017-05-24 10:13] LABS: ESTIMATED AVERAGE GLUCOSE 128 mg/dl; HA1C FLAG Normal (Normal)
[2017-05-24 12:53] LABS: BUN/CREATININE RATIO 19.6 (10-20); CALCIUM 9.4 mg/dl (8.5-10.1); CREATININE 0.94 mg/dl (0.60-1.40)
--- NOTE | 2017-07-03 13:46 | HISTORY & PHYSICAL EXAMINATION ---
DATE OF ADMISSION: 07/04/2017 HISTORY OF PRESENT ILLNESS: The patient is a 76-year-old white male being seen and evaluated with complaints of ongoing pain, attributable to his right knee. He has severe end-stage tricompartmental degenerative joint disease with bone to bone changes. He has failed attempts at conservative management. He has previously undergone successful left total knee arthroplasty. He presents today for right total knee arthroplasty. X-rays revealed there to be evidence of significant subchondral sclerosis and varus changes and varus thrust of his femur on his tibia with a varus alignment of the knee. The patient has failed all other attempts at conservative management. PAST MEDICAL HISTORY: Significant for hypertension and diabetes. FAMILY HISTORY: Otherwise unremarkable and noncontributory. SOCIAL HISTORY: The patient denies history of smoking, alcohol use or recreational drug use. PAST SURGICAL HISTORY: Significant for lumbar spine surgery, eye surgery. ALLERGIES TO MEDICATIONS: None. MEDICATIONS: Include losartan 50 mg p.o. daily, metformin 250 mg 4 times daily, fish oil. REVIEW OF SYSTEMS: Otherwise unremarkable. See history of present illness for pertinent positives. PHYSICAL EXAMINATION: GENERAL: Otherwise was unremarkable. HEENT: Head was atraumatic, normocephalic. HEART: Regular at 70 beats per minute. No murmurs are noted. LUNGS: Clear. No rales, rhonchi, or wheezes noted. ABDOMEN: Soft, nontender, nondistended. Bowel sounds are present in all 4 quadrants. RECTAL: No rectal examination was performed. MUSCULOSKELETAL: Consistent with that of severe end-stage tricompartmental degenerative joint disease, right knee. PLAN: Right total knee arthroplasty, postoperative pain management, DVT prophylaxis, antibiotics as necessary.
[~2017-07-04] VITALS: Ht 177.8 cm; Wt 112.5 kg
[2017-07-04] VITALS (7 sets, daily range): BP systolic 130–154; BP diastolic 65–82; PULSE 56–87; TEMP 36.4–37.1; O2SAT 95–98; Ht 177.8 cm; Wt 112.5 kg
[2017-07-04] MEDS: TRANEXAMIC ACID INJ 1,000 MG in SODIUM CHLORIDE 0.9% 100ML 100 ML IV SCH ×2 (06:30→12:34)
[~2017-07-04 09:23] MED LIST changes: +ACET-1256 PO; +BUPIVACAINE 0.25% 30 ML VIAL ONE; +BUPIVACAINE 0.5 % 5 MG/1 ML PF 10ML VIAL ONE; +CEFAZOLIN 2000 MG/60 ML D5W 60 ML IV SCH; -CEFAZOLIN 3000 MG/65 ML D5W 65 ML IV SCH; +DEXAMETHASONE 4 MG TAB PO SCH; +FLUT0.15; +LACTATED RINGER'S 1000ML 500 ML IV ONE; -OXYCODONE HCL 10 MG TABCR (OXYCONTIN) PO SCH; -POLYMYXIN B SULFATE 100,000 UNITS in NSS 100ML IR SCH; +SNK PO; -VANCOMYCIN INJ 400 MG in NSS 100ML IR SCH
[2017-07-04] MEDS ORDERED: ONDANSETRON INJ 2 MG/ML 2 ML VIAL IV PRN ×2 (11:30→15:45)
[2017-07-04] MEDS ORDERED: ATROPINE SULFATE 0.1 MG/ML 5ML SYR IV PRN (11:30)
[2017-07-04] MEDS ORDERED: MEPERIDINE HCL 25 MG/ML CARP IV PRN (11:30)
[2017-07-04] MEDS ORDERED: LABETALOL HCL IV 5 MG/ML 20ML IV PRN (11:30)
[2017-07-04] MEDS ORDERED: HYDROmorphone INJ 1 MG/ML SYR IV PRN (11:30)
[2017-07-04] MEDS ORDERED: FENTANYL CITRATE INJ 50 MCG/1 ML 2 ML VIAL IV PRN (11:30)
[2017-07-04] MEDS ORDERED: EpHEDrine SULFATE INJ 50 MG/ML AMP IV PRN (11:30)
[2017-07-04] MEDS ORDERED: MIDAZOLAM HCL 1 MG/ML 2ML VIAL ONE (11:50)
[2017-07-04] MEDS ORDERED: ORTHO JOINT ANESTHETIC ONE (12:34)
[2017-07-04] MEDS ORDERED: BACITRACIN 50000 UNIT VIAL ONE (12:34)
[2017-07-04] MEDS ORDERED: POVIDONE-IODINE OP SOLN 30 ML BTL ONE (12:34)
[2017-07-04] MEDS ORDERED: LIDOCAINE HCL 2% 2 ML VIAL (20MG/ML) ONE (14:17)
[2017-07-04] MEDS ORDERED: PROPOFOL IV EMULSION 10 MG/ML 20 ML VIAL IV ONE (14:17)
--- NOTE | 2017-07-04 14:57 | [facility] Operative Report ---
Operative Report Operative Date Jul 04, 2017. Pre-Operative Diagnosis Right Knee Degenerative Joint Disease Post-Operative Diagnosis Right Knee Degenerative Joint Disease Procedure(s) Performed Right Total Knee Arthroplasty Cemented Etienne nephew journey to en bloc right total knee Orthoplast is a femur 6 tibia 12 Janell [address] Yobani Richardson [employer] Organ[employer] Surgeon(s) Brittany Weaver PA-C Estimated Blood Loss 5cc Findings Severe end-stage DJD subchondral sclerosis osteophytes narrowed joint space medial and patellofemoral compartment failed attempts at conservative management Specimens As Per Surgeon Eliceo Lopez Right Knee Bone and Tissue Complication(s) None Disposition Recovery Room / PACU Indications Patient presents after failing attempts at conservative management with severe end-stage tricompartmental degenerative joint disease of the right knee for total knee arthroplasty was Caucasians been thoroughly discussed Description of Procedure After proper prepping and draping of the Right lower extremity anterior midline incision was made over the region of the extensor extensor mechanism after meticulous hemostasis was obtained and maintained in subcutaneous tissues a medial parapatellar incision was made The patella was subluxed lateralward the medial lateral gutter were cleaned from any hypertrophic synovitis and scar tissue of the distal femoral block was placed and the distal femoral osteotomy cut was made subsequently the chamfers anterior and posterior osteotomy cuts were made utilizing the 4-in-1 block the tibia was subsequently subluxed anteriorward medial and ateral meniscal remnants were excised in their entirety remnants of the anterior and posterior cruciate ligaments were excised in their entirety excellent exposure of the proximal tibia was obtained the tibial osteotomy guide was placed on the proximal tibial osteotomy cut was made once again the knee was irrigated with copious amounts of sterile saline solution the patella was subsequently everted lateralward thickened scar tissue around the patella was removed the patella was subsequently cut utilizing a freehand technique and was drilled prepared for final preparation and placement of patella socially flexion-extension gaps were checked and the equal and symmetric trials were placed to the appropriate femoral and tibial trials with poly-spacer being placed for equal flexion and extension gaps and full range of motion including extension to 0 and flexion to 140 the trial components after having been taken to recovery range of motion was subsequently removed meticulous hemostasis was obtained and maintained subsequently a knee block injection of joint cocktail including ropivacaine 0.5% 150 mg. Bupivacaine 0.5 % epinephrine 1-200,030 mL's toradol 30 mg dexamethasone 4 mg ketamine 10 mg clonidine 100 micrograms normal saline solution 30 mg was infiltrated into the soft tissues of the posterior knee medial lateral gutters and periosteal synovium special attention was paid to protect neurovascular structures at all times subsequently trial components having been removed the knee was irrigated with sterile saline solution. debris was removed the proximal tibia was subsequently prepared and was made ready for the placement of the tibial component tibial component was also cemented and tamped into position the femoral component was subsequently placed and cemented in the position the patellar component was subsequently cemented in position because hemostasis once again obtained and maintained wound having been thoroughly irrigated with debridement and debridement lavage was performed as well as a medial parapatellar incision closed with #1 Vicryl in interrupted fashion subcutaneous was closed with #2 Vicryl skin was closed with skin clips. PA-C was necessary for prepping and drapping as well as wound closure of deep fascia Sub cutaneous tissue and skin and was necessary for the case. A sterile compressive dressing was placed patient was taken to recovery in stable condition of report dictated by Dylan I attest to the content of the Intraoperative Record and any orders documented therein. Any exceptions are noted below. I attest to the content of the Intraoperative Record and any orders documented therein. Any exceptions are noted below.
[2017-07-04] MEDS ORDERED: SOD PHOSPHATE/SOD BIPHOSPHATE ENEMA 132 ML BTL PR PRN (15:45)
[2017-07-04] MEDS ORDERED: BISACODYL 10 MG SUPP PR PRN (15:45)
[2017-07-04] MEDS ORDERED: DiphenhydrAMINE HCL 50 MG/ML VIAL IV PRN (15:45)
[2017-07-04] MEDS ORDERED: OXYCODONE HCL IR 5 MG TAB (IMMEDIATE RELEASE) PO PRN (15:45)
[2017-07-04] MEDS ORDERED: FLUTICASONE PROPIONATE NA SPR 16 GM BTL PRN (15:45)
[2017-07-04] MEDS ORDERED: ZOLPIDEM TARTRATE 5 MG TAB PO PRN (15:45)
[2017-07-04] MEDS ORDERED: MAGNESIUM HYDROXIDE SUSP 30 ML UDC PO PRN (15:45)
[2017-07-04] MEDS ORDERED: ALUMINUM/MAGNESIUM/SIMETH (MAALOX MAX) 30 ML UDC PO PRN (15:45)
[2017-07-04] MEDS ORDERED: PHARMACY GLYCEMIC MGMT CONSULT PRN (15:51)
--- NOTE | 2017-07-04 16:14 | DIAGNOSTIC IMAGING REPORT ---
TWO VIEWS RIGHT KNEE CLINICAL HISTORY: Postoperative examination. FINDINGS: AP and crosstable lateral portable views of the right knee are obtained. A right knee arthroplasty is in near anatomic alignment. There has been undersurface remodeling of the patella. No acute fracture is seen. There are expected postoperative changes around the knee including a surgical drain, soft tissue edema, and subcutaneous gas. Atherosclerotic calcification is noted in the popliteal artery. IMPRESSION: Expected postoperative changes status post right knee arthroplasty. No acute fracture is seen. Electronically signed by: Lawrence Paris M.D. 07/04/2017 4:12 PM Dictated Date/Time: 07/04/2017 4:12 PM
[2017-07-04] MEDS ORDERED: GLUCOSE 10 TABS/TUBE PO PRN (16:15)
[2017-07-04] MEDS ORDERED: DEXTROSE 50% 50 ML SYR IV PRN (16:15)
[2017-07-04] MEDS ORDERED: GLUCAGON FOR INJ 1 MG VIAL SQ PRN (16:15)
[2017-07-04] MEDS ORDERED: GLUCOSE 40% GEL 15 GM TUBE PO PRN (16:15)
--- NOTE | 2017-07-04 16:48 | Anesthesiology Progress Note ---
Anesthesia Post Op Note Date & Time Jul 04, 2017 at 16:47 Vital Signs Pain Intensity: 0 Vital Signs Past 12 Hours Date Time Temp Pulse Resp B/P (MAP) Pulse Ox O2 Delivery O2 Flow Rate FiO2 07/04/17 16:40 36.2 65 15 144/74 94 Nasal Cannula 2 07/04/17 16:30 61 16 136/78 94 Nasal Cannula 2 07/04/17 16:20 56 17 128/75 97 Nasal Cannula 2 07/04/17 16:10 60 16 147/80 95 Nasal Cannula 2 07/04/17 16:00 60 17 148/83 96 Nasal Cannula 2 07/04/17 15:50 56 17 136/76 98 Oxymask 10 07/04/17 15:40 61 18 130/78 97 Oxymask 10 07/04/17 15:30 36.2 68 16 123/72 98 Oxymask 10 07/04/17 10:21 36.6 78 20 148/82 07/04/17 10:06 96 Room Air Notes Mental Status: alert / awake / arousable, participated in evaluation Pt Amnestic to Procedure: Yes Nausea / Vomiting: adequately controlled Pain: adequately controlled Airway Patency, RR, SpO2: stable & adequate BP & HR: stable & adequate Hydration State: stable & adequate Neuraxial Anesthesia: was administered, sensory block is resolving Anesthetic Complications: no major complications apparent
[2017-07-04] MEDS: INSULIN ASPART 100 UNITS/ML 3 ML PEN SC SCH ×2 (18:48→22:15)
[2017-07-04] MEDS: KETOROLAC TROMETHAMINE 15 MG/ML VIAL IV. SCH (18:48)
[2017-07-04] MEDS: SODIUM CHLORIDE 0.9% 1000ML 1,000 ML IV SCH (18:49)
--- NOTE | 2017-07-04 20:28 | Pharmacy Progress Note ---
Glycemic Control Intl Consult Date of Service Jul 04, 2017. Scope Glycemic Pharmacist consulted by Dr Elaine on 07/04/17 for glycemic control and to write orders per [facility] inpatient glycemic control protocol Objective Weight (Kilograms): 112.500 Accuchecks BSG (last 24hrs): Test 07/04/17 09:59 Bedside Glucose 135 mg/dl (70-99) Recent Pertinent Medications Outpatient Anti-diabetic Regimen: * Glyburide/metformin 1.25/250 mg - 2 tabs PO qAM * A1c = 6.1 % 05/24/17 Risk Factors for Insulin Resistance: * Steroids: Orthomix + dexamethasone 8 mg PO pre-op * Recent Surgery: POD #0 s/p R-TKA * Diet: T2DM Assessment & Plan ASSESSMENT: * 76 yr old male admitted for R-TKA. Excellent outpatient glycemic control. * Pt is maintained on oral antidiabetic agents as an outpatient. Will hold oral agents for admission and utilize SQ basal bolus insulin regimen which is the recommended regimen for inpatient glycemic control. * Will initiate weight based insulin dosing for insulin kapil patient and titrate based on BSG trends. * Anticipate patient only needing a one time dose of Lantus on POD # 0. * ADA & AACE recommend a goal blood sugar range 140-180 mg/dl for the majority of critically ill & non-critically ill patients. However, more stringent targets may be selected in individual cases. Will utilize more stringent goal of 110-140mg/dl based on patient age & comorbidities. Additionally, tighter glycemic control is warranted to facilitate wound/infection healing. PLAN FOR INPATIENT GLYCEMIC CONTROL: * Holding outpatient oral diabetes medications * Lantus SQ HS x 1, per scale: * 0 units for BSG less than 120 mg/dL * 10 units for BSG 120 - 140 mg/dL * 20 units for BSG greater than 140 mg/dL * Correctional Insulin with NOVOLOG per scale ACHS * Goal Range: Low 110 mg/dL - High 140 mg/dL * Correction Factor: 20 mg/dL/unit * Nutritional / Prandial insulin per carb ratio of 1 unit per 7 grams CHO consumed * Overnight check with coverage at 00 and 04 * Please note that the plan above was derived based on current level of insulin resistance and hospital stress. These recommendations are appropriate for inpatient admission only. Plan of care upon discharge will need to be reassessed to avoid potential outpatient hypo/hyperglycemia. Thank you.
[2017-07-04] MEDS ORDERED: SENNA 8.6 MG TAB PO SCH (21:00)
[2017-07-04] MEDS ORDERED: LANTUS PER UNIT CHARGE SQ SCH ×2 (21:00→22:00)
[2017-07-04] MEDS: ASPIRIN 81 MG ECTAB PO SCH (21:58)
[2017-07-04] MEDS: ACETAMINOPHEN 500 MG TAB PO SCH (22:00)
[2017-07-04] MEDS: CEFAZOLIN IV 2,000 MG in SYRINGE 0 ML IV SCH (22:03)
[2017-07-05] MEDS: KETOROLAC TROMETHAMINE 15 MG/ML VIAL IV. SCH ×3 (00:19→12:00)
[2017-07-05 03:50] VITALS: BP 152/71; PULSE 85; TEMP 36.6; O2SAT 97
[2017-07-05] MEDS: SODIUM CHLORIDE 0.9% 1000ML 1,000 ML IV SCH (04:01)
[2017-07-05] MEDS: ACETAMINOPHEN 500 MG TAB PO SCH (05:54)
[2017-07-05] MEDS: CEFAZOLIN IV 2,000 MG in SYRINGE 0 ML IV SCH (05:56)
[2017-07-05 06:16] LABS: HEMATOCRIT 39.8 % (42-52); MEAN CELL VOLUME 90.5 fL (80-100); MEAN CORPUSCULAR HEMOGLOBIN 29.8 pg (25-34); MEAN CORPUSCULAR HGB CONC 32.9 g/dl (32-36); MEAN PLATELET VOLUME 9.5 fL (7.4-10.4); PLATELET COUNT 140 K/uL (130-400); WHITE BLOOD COUNT 10.97 K/uL (4.8-10.8)
[2017-07-05 06:45] LABS: BUN/CREATININE RATIO 24.6 (10-20); CALCIUM 7.9 mg/dl (8.5-10.1); CREATININE 0.76 mg/dl (0.60-1.40); POTASSIUM 3.9 mmol/L (3.5-5.1)
[2017-07-05 07:06] VITALS: BP 158/81; PULSE 63; TEMP 36.5; O2SAT 94
--- NOTE | 2017-07-05 08:12 | DISCHARGE SUMMARY ---
DISCHARGE DIAGNOSIS: Degenerative joint disease, right knee. SECONDARY DIAGNOSIS: None. CONSULTS: None. COMPLICATIONS: None. PROCEDURE: The patient underwent a right total knee arthroplasty with Dr. Richardson on 07/04/2017. BRIEF HISTORY OF PRESENT ILLNESS: Please see previously dictated history and physical. HOSPITAL SUMMARY: The patient was admitted on the above date for the above procedure. Procedure went without complication. Postop day 1, the patient was feeling well without complaints. He denied chest pain or shortness of breath. Vital signs were stable. He was afebrile. Dressing was clean, dry and intact. He was neurovascularly intact. Calves were soft and nontender. Hemovac drained 115-150 mL. Hemoglobin was 13.1. The patient began physical therapy per protocol. He was discharged to home later that day in stable condition. For further review, please see the chart. Lab, x-ray data and discharge instructions as per chart.
[2017-07-05] MEDS ORDERED: ACET-1256 PO (08:20)
[2017-07-05] MEDS ORDERED: ONDA8TAB6 PO (08:20)
[2017-07-05] MEDS ORDERED: ASPEC81 PO (08:20)
[2017-07-05] MEDS ORDERED: RXC5 PO (08:20)
[2017-07-05] MEDS ORDERED: CLB200 PO (08:20)
--- NOTE | 2017-07-05 08:21 | Discharge Instructions ---
Discharge Instructions Date of Service Jul 05, 2017. Admission Reason for Admission: Right Knee Osteoarthritis Discharge Discharge Diagnosis / Problem: sp right TKA Discharge Goals Goal(s): Decrease discomfort, Improve function, Increase independence Activity Recommendations Activity Limitations: per Instructions/Follow-up section . Instructions / Follow-Up Instructions / Follow-Up ACTIVITY RECOMMENDATIONS: SELF CARE INSTRUCTIONS AFTER TOTAL KNEE REPLACEMENT A. You may need to continue a physical therapy program after discharge from the hospital. There are several options available to you. Your doctor will assist you in selecting the best one for you. 1. An out-patient facility 2 to 3 times a week for therapy or home therapy. 2. Continue working on all exercises taught to you in the hospital. Your goals should be to increase bending of your knee to 90 degrees and beyond and to fully straighten your knee. B. You may progress at your own pace from walking with a walker or crutches to a cane; then to no assistive devices. C. Make walking a part of your daily routine. Be up as much as comfortable with rest periods throughout the day. Rest with leg elevation is very important. Use the ice wrap frequently for the first 3-4 weeks. D. There are no restrictions on activities. You may ride in a car, shop, participate in salesperson stereo equipment and all social activities. E. Wear the long elastic stockings (GABRIEL hose) 20 hours a day for 2 weeks after surgery. They can be removed several times a day for laundering and for a bath. F. You may shower, no tub baths until cleared by your doctor. SPECIAL CARE INSTRUCTIONS: VERY IMPORTANT TO READ AND REVIEW A. There are a few signs you need to watch for after you are home. Call [facility] if you notice any of the followin. Increased severe knee pain. Some pain is expected especially when you exercise. 2. Increased swelling in your leg or knee; pain or swelling of the calf muscle in either lower leg. 3. Any fluid drainage from the incision. 4. Shortness of breath or chest pain. B. Please call [facility] at if you have any concerns or questions about your operation or recovery. The doctor or his nurse will return your call promptly. C. You must take antibiotics before dental work, bladder, bowel or other surgery. Your doctor will provide you with a permanent care to carry describing this precaution. IMPORTANT: * REMEMBER TO TAKE ASPIRIN, 81 MG, TWICE DAILY FOR 4 WEEKS UNLESS OTHERWISE DIRECTED. THIS IS YOUR BLOOD THINNER. * HIGH RISK PATIENTS MAY BE PRESCRIBED A STRONGER BLOOD THINNER. THIS WILL BE PROVIDED AT DISCHARGE. * CALL IF INCREASED PAIN, REDNESS, DRAINAGE OR FEVER GREATER THAT 101. * WEAR GABRIEL HOSE 20 HOURS PER DAY FOR 2 WEEKS. DERMABOND Prineo- This is a mesh tape dressing that is covered with glue. It should remain in place until the incision is properly healed, usually 10-14 days. This dressing is designed to naturally slough off. You may trim the excess mesh tape as it peels off. Incision may be briefly wet in a shower. Dry immediately by blotting with a clean, dry towel. Do not bath or swim until instructed by your doctor. Do not scratch, rub, or pick at the dressing. Do not apply any topical ointments or lotions until dressing is completely removed and/or instructed by your doctor. There may be a small piece of suture material at one end of your incision. Do not pull or trim this. If it is bothersome or catching on clothing, you may cover it with a band-aid. FOLLOW UP VISIT: If appointment is not already scheduled: Please call [facility] to make a follow-up appointment for 2 weeks after your surgery at . Current Hospital Diet Patient's current hospital diet: Diabetes Type 2 Diet Discharge Diet Recommended Diet: Regular Diet Procedures Procedures Performed: Right Total Knee Arthroplasty Cemented Etienne nephew journey to en bloc right total knee Orthoplast is a femur 6 tibia 12 Janell 35 oval patella Pending Studies Studies pending at discharge: no Laboratory Results Hemoglobin A1c Test 05/24/17 09:31 Range/Units Estimated Average Glucose 128 mg/dl Hemoglobin A1c 6.1 H 4.5-5.6 % Medical Emergencies . Who to Call and When: Medical Emergencies: If at any time you feel your situation is an emergency, please call 911 immediately. . Non-Emergent Contact Non-Emergency issues call your: Surgeon . "Provider Documentation" section prepared by Brittany Weaver. . VTE Core Measure Inpt VTE Proph given/why not?: Other Anticoagulation, T.E.D. Stockings, SCD's [place] Drug Monitoring Program Search Results: patient reviewed within database, no issues identified
--- NOTE | 2017-07-05 08:24 | Pharmacy Progress Note ---
Glycemic Control Progress Note Date of Service Jul 05, 2017. Scope Glycemic Pharmacist consulted for glycemic control to write orders per [facility] inpatient glycemic control protocol. Objective Accuchecks BSG (last 24hrs): Test 07/04/17 09:59 07/05/17 05:48 Bedside Glucose 135 mg/dl (70-99) Random Glucose 162 mg/dl (70-99) Recent Pertinent Medications The patient is currently receiving: * Basal insulin: Lantus 20 units X 1 yesterday evening * Correctional Insulin: Novolog Correction per scale ACHS Goal Range: Low 110 mg/dL - High 140 mg/dL Correction Factor: 20 mg/dL/unit * Prandial insulin: Per carb ratio of 1 unit per 7 grams CHO consumed Outpatient Anti-Diabetic Meds glyburide/metformin 1.25mg/250 mg - two tablets every morning Assessment & Plan ASSESSMENT: * See progress note from 07/04/17 for more background info, in short: * Pt receiving SQ basal bolus insulin regimen for hyperglycemia secondary to baseline DM (outpatient regimen on hold), POD 1 for right TKA, and dexamethasone 8 mg PO x 1 yesterday * Patient is currently receiving an average of 34 units of insulin per day * 20 units of basal insulin * 14 units of prandial/correctional insulin * BSGs ranging 135 - 233 mg/dl over the past 24hrs * Changes needed to insulin regimen: * AM Fasting BSG = 162 mg/dl. This is slightly above goal range for patient based on inpatient targets and co-morbidities. As the patient received only one time dose of oral dexamethasone yesterday, an additional one time dose of Lantus this morning is reasonable. A very loose sliding scale of Lantus will be added this evening in case the patient has continued hyperglycemia. * Post-prandial BSGs tended to rise yesterday after the dose of dexamethasone. It is reasonable to tighten the carbohydrate ratio slightly this morning to 1 unit for every 6 grams of carbohydrates this morning - will most likely return to a carbohydrate ratio of 1 unit for every 7 grams of carbohydrates. * Total daily dose = ~30 units. This will likely decrease significantly as the effects of dexamethasone diminish. * Additional notes / comments: restart metformin after oral intake established and kidney function is appropriate, most likely POD 2. PLAN FOR INPATIENT GLYCEMIC CONTROL: * Lantus 15 units SQ x 1 this morning the Lantus 0-10 units SQ x 1 this evening (Lantus 10 units if blood sugar greater than 180 mg/dL) * Continuing correction factor of 20 mg/dl/unit * Continuing carb ratio of 1 unit per 7 grams CHO consumed * Continuing goal range to Low 110 mg/dL - High 140 mg/dL RECOMMENDATIONS FOR DISCHARGE: * Patient's HbA1C well controlled on currently regimen, may continue home oral agents Thank you.
[2017-07-05] MEDS ORDERED: MULTIVITAMIN TAB PO SCH (09:00)
[2017-07-05] MEDS ORDERED: LANTUS PER UNIT CHARGE SQ ONE (09:00)
[2017-07-05] MEDS ORDERED: LOSARTAN POTASSIUM 50 MG TAB PO SCH (09:00)
[2017-07-05] MEDS ORDERED: PANTOprazole SOD 40 MG TAB PO SCH (09:00)
[2017-07-05] MEDS: ASPIRIN 81 MG ECTAB PO SCH (09:13)
[2017-07-05] MEDS: INSULIN ASPART 100 UNITS/ML 3 ML PEN SC SCH ×2 (09:20→12:00)
[2017-07-05 10:55] VITALS: BP 158/81; PULSE 63; TEMP 36.5; O2SAT 94
[2017-07-05 10:59] VITALS: BP 145/75; PULSE 76; TEMP 36.8; O2SAT 92
[2017-07-05 11:00] VITALS: BP 145/75; PULSE 69; O2SAT 97
[2017-07-05] MEDS ORDERED: CeleBREX 200 MG CAP PO SCH (21:00)
[2017-07-05] MEDS ORDERED: LANTUS PER UNIT CHARGE SQ PRN (21:00)
[2017-07-06] MEDS ORDERED: METFORMIN HCL 500 MG TAB PO SCH (09:00)
== END 2017-07-05 12:18 | disposition home health service (06) | DRG 470 ==
LOC: C.ACU 09:23 → C.3E 09:50 → UNDOADMIN 15:39 → C.3E 15:39 → ENRESERV 16:22
PROVIDERS: ADMIT Orthopaedic Surgery; ATTEND Orthopaedic Surgery
PROC: 0SRC0J9 Replacement of Right Knee Joint with Synthetic Substitute, Cemented, Open Approach (ICD-10-PCS; principal; 2017-07-04 12:30)
DX: M17.11 Unilateral primary osteoarthritis, right knee (principal); I10 Essential (primary) hypertension; E11.9 Type 2 diabetes mellitus without complications